=== PATIENT | female | born 1955 | race Asian ===

== ENCOUNTER 2019-02-05 22:27 | Emergency (ER) | payer MEDICARE, OTHER ==
[~2019-02-05] VITALS: Ht 154.9 cm; Wt 58.3 kg
--- NOTE | 2019-02-05 22:55 | NUR ---
FIRST CONTACT WITH PT. PT NEEDS A MED REFILL ON HER BLOOD PRESSURE MEDICATIONS "I AM VISITING FROM [place] AND I FORGOT MY MEDICATIONS." PT REPORTS A HEADACHE. PT'S AOX4. RESPS EVEN AND UNLABORED. ALL MONITORS IN PLACE. CALL LIGHT WITHIN REACH.
[2019-02-05] MEDS ORDERED: DIPHENHYDRAMINE 50 MG/ML, 1ML ONE (22:57)
[2019-02-05] MEDS ORDERED: KETOROLAC 30 MG/1 ML ONE (22:58)
[2019-02-05] MEDS ORDERED: METOCLOPRAMIDE 5 MG/ML, 2ML ONE (22:58)
[2019-02-05] MEDS ORDERED: METOCLOPRAMIDE 5 MG/ML, 2ML IVPush ONE (23:00)
[2019-02-05] MEDS ORDERED: DIPHENHYDRAMINE 50 MG/ML, 1ML IVPush ONE (23:00)
[2019-02-05] MEDS ORDERED: KETOROLAC 30 MG/1 ML IVPush ONE (23:00)
[2019-02-05 23:22] LABS: ALBUMIN 4.3 g/dL (3.4-5.0); ANION GAP 4 mmol/L (5-15); CALCIUM 10.7 mg/dL (8.5-10.1); CHLORIDE 102 mmol/L (98-107); CREATININE 0.86 mg/dL (0.55-1.02)
--- NOTE | 2019-02-05 23:39 | NUR ---
PT MEDICATED PER EMAR. PT TOLERATED WELL. PT'S AOX4. RESPS EVEN AND UNLABORED.
--- NOTE | 2019-02-06 00:22 | NUR ---
PT'S BP IS 150/90 AT THIS TIME. EDMD AT BEDSIDE. AWAITING DC NOW.
[2019-02-06 00:44] VITALS: BP 149/94
--- NOTE | 2019-02-06 00:44 | NUR ---
PT GIVEN DC INSTRUCTIONS AND SCRIPTS. PT EDUCATED REGARDING DC MEDICATIONS. PT'S AOX4. RESPS EVEN AND UNLABORED. NO ACUTE DISTRESS AT DC.
== END 2019-02-06 00:45 | disposition home or self-care (01) ==
LOC: ED 23:40
DX: I10 Essential (primary) hypertension (principal); G44.219 Episodic tension-type headache, not intractable; E11.9 Type 2 diabetes mellitus without complications; E03.9 Hypothyroidism, unspecified
CPT/HCPCS: 36415; 80048; 82040; 84443; 93005; 96374; 96375; 99284; J1200; J1885; J2765